=== PATIENT | male | born 1995 | race Caucasian/White ===

== ENCOUNTER 2024-12-21 03:29 | Day surgery (SDC) | payer OTHER ==
[2024-12-21] VITALS (192 sets, daily range): BP systolic 92–157; BP diastolic 56–104
--- NOTE | 2024-12-21 07:05 | NUR ---
Patient arrived to the ANR suite, identification and demographics confirmed. Patient to room 09, AAO, ambulatory, vitals obtained, ID/allergy placed, changed into hospital gown, REGINA hose, and non-slip socks. Procedure and timeline explained for treatment and discharge. All questions answered and the patient presents no concerns at this time. MD telephoned with patient intake information including usage, dose, last dose/time taken and initial vital signs. Patient history and allergies reviewed with MD. Orders received for 10 mg PO Valium and 0.3 mg PO Clonidine now. Will reassess per protocol and update MD with assessment and vitals.
[2024-12-21] MEDS ORDERED: diazePAM 5 MG/TAB PO PRN ×2 (07:30→08:30)
[2024-12-21] MEDS ORDERED: CYANOCOBALAMIN 500 MCG/TAB ( B12) PO PRN (07:30)
[2024-12-21] MEDS ORDERED: LACTATED RINGER'S 1,000 ML IV PRN ×2 (07:30→10:10)
[2024-12-21] MEDS ORDERED: SODIUM CHLORIDE 0.9% 1,000 ML IV PRN ×3 (07:30→19:00)
[2024-12-21] MEDS ORDERED: SCOPOLAMINE 1.5 MG DIS TD PRN (07:30)
[2024-12-21] MEDS ORDERED: cloNIDine HCL 0.1 MG/TAB PO PRN (07:30)
[2024-12-21] MEDS ORDERED: FAMOTIDINE 20 MG/TAB PO PRN (07:30)
[2024-12-21] MEDS ORDERED: ALBUTEROL SULFATE 2.5 MG VIAL IN PRN (07:30)
[2024-12-21] MEDS ORDERED: PANTOPRAZOLE SODIUM Sesquihydr 40 MG/TAB PO PRN (07:30)
[2024-12-21] MEDS ORDERED: ASCORBIC ACID 4,000 MG in SODIUM CHLORIDE 0.9% 1,000 ML IV SCH (08:00)
[2024-12-21] MEDS ORDERED: XANAX0.5 MG PO (08:04)
[2024-12-21] MEDS ORDERED: PROTONIX40 M2 PO (08:04)
[2024-12-21] MEDS ORDERED: ZOFRAN4 MG/TAB PO (08:07)
[2024-12-21 08:35] LABS: BASO% 0.7 % (0-3); EOS% 3.6 % (0-8); HEMATOCRIT 43.2 % (39.0-50.0); HEMOGLOBIN 13.6 g/dl (14.0-18.0); IMMATURE GRANULOCYTES 0.2 % (0.0-5.0); LYMPH% 29.6 % (15-41); MEAN CELL VOLUME 88.3 fL CALC (80.0-100.0); MEAN CORPUSCULAR HGB 27.8 pG CALC (26.0-32.0); MEAN CORPUSCULAR HGB CONC 31.5 g/dL CAL (32.0-36.0); MONO% 8.8 % (2-13); NEUT# 3.3 thou/uL (1.82-7.42); NEUT% 57.1 % (42-76); RED BLOOD COUNT 4.89 mill/uL (4.70-6.10); RED CELL DISTRI WIDTH 12.6 % (11.5-15.5)
[2024-12-21] MEDS ORDERED: DEXMEDETOMIDINE HCL IN SODIUM 100 ML IV PRN (08:55)
[2024-12-21 09:03] LABS: ALBUMIN 4.1 g/dL (3.2-5.0); BILIRUBIN, TOTAL 0.5 mg/dL (0.2-1.3); CREATININE 0.6 mg/dL (0.7-1.3); POTASSIUM 4.3 mmol/l (3.5-5.1); TOTAL PROTEIN 7.4 g/dL (6.3-8.2)
--- NOTE | 2024-12-21 09:17 | NUR ---
EKG OBTAINED AT THIS TIME
--- NOTE | 2024-12-21 10:00 | NUR ---
DR LIND AT [facility] AT THIS TIME
[2024-12-21] MEDS ORDERED: ROCURONIUM BROMIDE 10 MG/ML 5ML VIAL IV PRN (10:10)
[2024-12-21] MEDS ORDERED: THIAMINE HCL 100 MG/ML 2ML VIAL IV PRN (10:10)
[2024-12-21] MEDS ORDERED: LIDOCAINE HCL 1% (10MG/ML) 100 MG/10 ML MDV IV PRN (10:10)
[2024-12-21] MEDS ORDERED: cloNIDine HYDROCHLORIDE 100 MCG/ML 10 ML INJ IV PRN (10:10)
[2024-12-21] MEDS ORDERED: LIDOCAINE HCL 1% (10MG/ML) 100 MG/10 ML MDV VT PRN ×2 (10:10)
[2024-12-21] MEDS ORDERED: ONDANSETRON HCl 4 MG/2 ML SDV IV PRN ×3 (10:10→19:00)
[2024-12-21] MEDS ORDERED: MAGNESIUM SULFATE HEPTAHYDRATE 100 ML IV PRN (10:10)
[2024-12-21] MEDS ORDERED: OCTREOTIDE ACETATE 100 MCG/VIAL SDV SC PRN (10:10)
[2024-12-21] MEDS ORDERED: STERILE WATER FOR IRRIGATION 1,000 ML BTL IR PRN (10:10)
[2024-12-21] MEDS ORDERED: PROPOFOL 100 ML IV PRN (10:10)
[2024-12-21] MEDS ORDERED: PROPOFOL 10 MG/ML 100ML VIAL IV PRN (10:10)
[2024-12-21] MEDS ORDERED: MIDAZOLAM HCL 2 MG/2 ML VIAL IV PRN ×3 (10:10→14:30)
[2024-12-21] MEDS ORDERED: POTASSIUM CHLORIDE 20 MEQ/100 ML BAG IV PRN (10:10)
[2024-12-21] MEDS ORDERED: NALTREXONE HCL 50 MG/TAB VT PRN (10:10)
[2024-12-21] MEDS ORDERED: diazePAM 5 MG/TAB VT PRN (10:10)
[2024-12-21] MEDS ORDERED: SUCCINYLCHOLINE CHLORIDE 20 MG/ML 10ML VIAL IV PRN (10:10)
[2024-12-21] MEDS ORDERED: cloNIDine HCL 0.1 MG/TAB VT PRN (10:10)
[2024-12-21] MEDS ORDERED: DiphenhydrAMINE HCL 50 MG/ML SDV IV PRN (10:10)
--- NOTE | 2024-12-21 10:40 | NUR ---
Induction Note Patient to ANR procedure room. Time out performed at 1040. Patient placed on monitors, Linda hugger, bilateral wrist restraints applied for ET tube protection. Versed 5mg given IV push at 1040 Tourniquet applied to RIGHT arm Lidocaine 100mg given at 1041 IV push followed by Rocoronium 10mg at 1042 IV push and held for 90 seconds. Propofol bolus of 130mg given at 1042 IV push. Succinylcholine 80mg given IV push at 1044. Smooth intubation with 7.5 ETT. Positive CO2. Positive Auscultation for air exchange. Patient placed on ventilator for spontaneous ventilation. Placed on Propofol IV drip at 1045. OG inserted. Positive air on auscultation. Positive gastric content. Stomach washed at this time.
--- NOTE | 2024-12-21 11:15 | NUR ---
OG close note Stomach washed at this time. Naltrexone 50 mg with Clonidine 0.1 mg via OG tube. OG will be clamped for 45 minutes.
--- NOTE | 2024-12-21 12:00 | NUR ---
OG open note OG open at this time. Gastric content draining into drainage bag. OG to drain for 45 minutes. Propofol will be titrated down based on patient.
--- NOTE | 2024-12-21 12:45 | NUR ---
OG close note Stomach washed at this time. Naltrexone 50 mg with Clonidine 0.3 mg via OG tube. OG will be clamped for 45 minutes.
--- NOTE | 2024-12-21 14:16 | NUR ---
patient reacting minimally spoke with dr hendricks will give time.
[2024-12-21] MEDS ORDERED: NALTREXONE50 MG PO (15:30)
[2024-12-21] MEDS ORDERED: KLONOPIN2 MG PO (15:30)
[2024-12-21] MEDS ORDERED: CLONIDINE0.1 MG PO (15:30)
--- NOTE | 2024-12-21 15:55 | NUR ---
OG close note Stomach washed at this time. Valium 10mg with Clonidine 0.2 mg via OG tube. OG will be clamped for 30 minutes.
--- NOTE | 2024-12-21 16:30 | NUR ---
Extubation note Closing medications given Benadryl 50mg IV push, Decadron 10mg IV push,Magnesium 4 grams IV, Zofran 8mg IV push, Octreotide 100mcg SC. Stomach washed out prior to extubation. Suctioned gastric content. OG removed. Patient extubated. Propofol Discontinued. Wrist restraints removed. Linda hugger Removed. See ANR Moderate sedate recovery record for further notes and assessment.
--- NOTE | 2024-12-21 16:42 | NUR ---
phoned mother and provided her update
--- NOTE | 2024-12-21 17:05 | NUR ---
patient arrived to [place] from [place]; on ; breathing unlabored; bedside report from gladis eye covering in placed; no s.s of distress; personal items in anr locker; vitals stable at this time; patient stable; call light within reach; bed in lowest postion;safety measures in place; jordana hugger in placed at this time; NS running in trilpe lumen with no issues
--- NOTE | 2024-12-21 17:06 | NUR ---
patient to [facility] via bed. report given to camille
[2024-12-21] MEDS ORDERED: PROMETHAZINE HCL 25 MG in SODIUM CHLORIDE 0.9% 50 ML IV PRN (19:00)
[2024-12-21] MEDS ORDERED: HALOPERIDOL LACTATE 5 MG/ML SDV IV PRN (19:00)
[2024-12-21] MEDS ORDERED: PROMETHAZINE HCL 12.5 MG in SODIUM CHLORIDE 0.9% 50 ML IV PRN (19:00)
[2024-12-21] MEDS ORDERED: ACETAMINOPHEN 500 MG TAB PO PRN (19:00)
[2024-12-21] MEDS ORDERED: ACETAMINOPHEN 1,000 MG/100 ML VIAL IV PRN (19:00)
[2024-12-21] MEDS ORDERED: KETOROLAC TROMETHAMINE 30 MG/ML SDV IV PRN (19:00)
--- NOTE | 2024-12-21 20:30 | NUR ---
PT IS A/OX3, COMPLETELY AWAKE AND C/O NOT BEING ABLE TO SLEEP. ADMINSITERED PRN MEDICATION, OFFERED EXTRA PILLOWS FOR COMFORT. PT LAYING IN BED SUPINE. VSS. INF RUNNING PER EMAR. NO S/S OF DISTRESS. BED ALARM ON AND SAFETY PRECAUTIONS IN PLACE.
[2024-12-21] MEDS ORDERED: PATIENT' OWN MED CONTROLLED 1 EA DOSE IV PRN (21:00)
[2024-12-21] MEDS ORDERED: clonazePAM 1 MG/TAB PO PRN (23:00)
[2024-12-21] MEDS ORDERED: cloNIDine HCL 0.1 MG/TAB PO SCH (23:00)
--- NOTE | 2024-12-22 00:30 | NUR ---
ADMINSITERED SCHEDULED MEDS PER EMAR, PT TOLERATED WELL. DENIES ANY N/V/P AT THIS TIME. ADMINSITERED PRN MEDICATION WELL DUE TO PT INCREASE AGITATION FROM NOT BEING ABLE TO SLEEP. PT IS LAYING IN BED SEMI FOWELRS, WITH EYES CLOSED. RM AIR. VSS. NO S/S OF DISTRESS. ENCOURAGED TO LET MEDS TAKE EFFECT AND RELAX. BED ALARM ON AND SAFETY PRECAUTIONS IN PLACE. SITTER AT DOORWAY.
[2024-12-22] MEDS ORDERED: diazePAM 10 MG/2 ML VIAL IV SCH (00:58)
--- NOTE | 2024-12-22 01:15 | NUR ---
PT C/O INCREASED AGITATION AND ANXIETY POST MEDICATIONS. WAS CAKLLED AND INFORMED. TORB FOR VALIUM IV, MED FAXED TO [facility]. ADMINSITERED ORDERED MED AND PAIN MEDICATION PER EMAR TO HELP WITH PT LEG PAIN AND RESTLESSNESS. RE ECNOURAGED REST AND INFORMED PT ON IMPORTANCE OF SLEEP POST PROCEDURE. PT LAYING IN BED SEMI FOWLERS, RM AIR. NO S/S OF DISTRESS. BED ALARM ON AND SAFETY PRECAUTIONS IN PLACE. SITTER AT DOORWAY.
[2024-12-22] MEDS ORDERED: ALPRAZolam 0.5 MG/TAB PO SCH (02:15)
--- NOTE | 2024-12-22 02:30 | NUR ---
WAS CALLED AGAIN AND INFORMED OF PT STATUS AND REQUEST FOR "REMERON" PHYSICIAN ORDERED XANAX PO, MEDICAITON FAXED TO PHARMACY AND CHARGE RN ADMINSITERED MED. PT LAYING IN BED SUPINE, ENCOURAGED TO RELAX AND PROMOTE REST. NO S/S OF DISTRESS. BED ALARM ON AND SAFETY PRECAUTIONS IN PLACE. SITTER AT DOORWAY.
[2024-12-22 03:23] VITALS: BP 131/78
[2024-12-22] MEDS ORDERED: cloNIDine HCL 0.1 MG/TAB PO PRN (04:00)
[2024-12-22] MEDS ORDERED: clonazePAM 1 MG/TAB PO PRN ×2 (04:00→08:00)
[2024-12-22] MEDS ORDERED: NALTREXONE HCL 50 MG/TAB PO SCH (04:00)
--- NOTE | 2024-12-22 04:00 | NUR ---
SCHEDULED MEDS ADMINISTERED PER EMAR. PT TOLERATED WELL. IMMANUEL ANY N/V/P AT THIS TIME. PT DOES STATE RESTLESS LEG AHS IMRPOVED SOME. EDUCATED PT ON MEDS ADMISNITERED AND NALTREXONE. PT IS LAYING IN BED SEMI FOWLERS. RM AIR. IVF RUNNING PER EMAR. VSS. NO S/S OF DISTRESS. BED ALARM ON AND SAFETY PRECAUTIONS IN PLACE. SITTER AT DOORWAY.
[2024-12-22 04:45] LABS: BASO% 0.2 % (0-3); HEMOGLOBIN 12.2 g/dl (14.0-18.0); IMMATURE GRANULOCYTES 0.1 % (0.0-5.0); LYMPH% 12.8 % (15-41); MEAN CELL VOLUME 85.4 fL CALC (80.0-100.0); MEAN CORPUSCULAR HGB 28.7 pG CALC (26.0-32.0); MEAN CORPUSCULAR HGB CONC 33.6 g/dL CAL (32.0-36.0); MONO% 2.8 % (2-13); NEUT# 6.9 thou/uL (1.82-7.42); NEUT% 84.1 % (42-76); RED BLOOD COUNT 4.25 mill/uL (4.70-6.10); RED CELL DISTRI WIDTH 12.6 % (11.5-15.5)
[2024-12-22 04:47] LABS: HEMATOCRIT 36.3 % (39.0-50.0)
[2024-12-22 05:05] LABS: ALBUMIN 3.4 g/dL (3.2-5.0); CREATININE 0.7 mg/dL (0.7-1.3); MAGNESIUM 1.8 mg/dL (1.6-2.3); POTASSIUM 4.2 mmol/l (3.5-5.1); TOTAL PROTEIN 6.3 g/dL (6.3-8.2)
[2024-12-22 05:10] LABS: BILIRUBIN, TOTAL 0.8 mg/dL (0.2-1.3)
[2024-12-22 07:55] VITALS: BP 125/81
[2024-12-22] MEDS ORDERED: PANTOPRAZOLE SODIUM Sesquihydr 40 MG/TAB PO SCH (08:00)
[2024-12-22] MEDS ORDERED: ACETAMINOPHEN 325 MG/TAB PO SCH (08:00)
[2024-12-22] MEDS ORDERED: cloNIDine HCL 0.1 MG/TAB PO SCH (08:00)
--- NOTE | 2024-12-22 08:20 | NUR ---
patient a/o x2; room air; breathing unlabored; patient sitting semi folwer in bed eating breakfast; denied any pain; denied any n/d/v at this time; central line working with no issues running with NS @100; writter removed iv site in right shoulder due to no use; personal items in anr locker; POC was talked about; labs and status of patient was called to provider; call light within reach,verbalized understanding on how to use, bed in lowest postion;safety measures in place
--- NOTE | 2024-12-22 08:34 | NUR ---
verbal order for magnesium 400mg x3 doses; awaiting pharmacy
[2024-12-22] MEDS ORDERED: MAGNESIUM OXIDE 400 MG/TAB PO PRN (09:00)
[2024-12-22] MEDS ORDERED: Cholecalciferol 2,000 UNIT/TAB PO PRN (09:00)
[2024-12-22] MEDS ORDERED: ACETAMINOPHEN 500 MG TAB PO PRN (09:00)
[2024-12-22] MEDS ORDERED: MAGNESIUM OXIDE 400 MG/TAB PO SCH (09:30)
--- NOTE | 2024-12-22 12:33 | NUR ---
provider came and talked to patient, gladis freedmanmred to give discharge medications; patient already showered ad walked; tolerated medication; no complaints at this time; awaiting ride
--- NOTE | 2024-12-22 13:40 | NUR ---
IV site discontinued, cath intact. No edema , no redness, voices no discomfort. Discharge instructions given. Patient verbalizes understanding of same. Discharged in stable condition via Ambulatory to Home with family. All belongings sent with pt.
== END 2024-12-22 13:41 | disposition home or self-care (01) | DRG 897 ==
LOC: MS2 03:29 → ANR 03:29 → MS2 17:00 → ANR 12-22 13:41
PROVIDERS: ATTEND Anesthesiology
DX: F11.20 Opioid dependence, uncomplicated (principal)
CPT/HCPCS: J1100; J1200; J2354; J2405; J2704; J3360; J3411; J3475; J3480; J3490